=== PATIENT | female | born 1995 | race African-American/Black ===

== ENCOUNTER 2020-01-11 13:48 | Emergency (ER) | payer MEDICAID, OTHER ==
[~2020-01-11] VITALS: Ht 162.6 cm; Wt 77.3 kg
[~2020-01-11 13:48] MED LIST: DEXM20CP PO
[2020-01-11 13:52] VITALS: BP 116/78
[2020-01-11] MEDS ORDERED: ZICAM PO (13:57)
[2020-01-11] MEDS ORDERED: ACET-784 PO (13:57)
[2020-01-11] MEDS ORDERED: ONDANSETRON HCL 4 MG TABLET PO ONE (16:00)
[2020-01-11] MEDS ORDERED: ALBUTEROL SULFATE HFA 90 MCG/PUFF 8 GM INHALER IH ONE (16:00)
[2020-01-11] MEDS ORDERED: BENZONATATE 100 MG CAPSULE PO ONE (16:00)
[2020-01-11] MEDS ORDERED: IBUPROFEN 400 MG TABLET PO ONE (16:00)
[2020-01-11 16:17] LABS: INFLUENZA TYPE A NEGATIVE FOR TYPE A (NEGATIVE); INFLUENZA TYPE B NEGATIVE FOR TYPE B (NEGATIVE)
== END 2020-01-11 16:43 | disposition home or self-care (01) ==
LOC: EMS 13:49
DX: J06.9 Acute upper respiratory infection, unspecified (principal); Z20.828 Contact with and (suspected) exposure to other viral communicable diseases
CPT/HCPCS: 87635; 87804; 94640; 99284; Q0162; J3535

== ENCOUNTER 2022-02-12 18:04 | Emergency (ER) | payer MEDICAID ==
[~2022-02-12] VITALS: Ht 157.5 cm; Wt 81.8 kg
[~2022-02-12 18:04] MED LIST changes: +ACET-784 PO; -DEXM20CP PO; +ZICAM PO
[2022-02-12 19:03] VITALS: BP 115/75
[2022-02-12] MEDS ORDERED: IBUP-2070 PO (19:22)
== END 2022-02-12 19:36 | disposition home or self-care (01) ==
LOC: EMS 18:04
DX: R59.0 Localized enlarged lymph nodes (principal); F12.90 Cannabis use, unspecified, uncomplicated; Z98.890 Other specified postprocedural states
CPT/HCPCS: 99282; Z7502

== ENCOUNTER 2022-03-12 13:05 | Emergency (ER) | payer MEDICAID ==
[~2022-03-12] VITALS: Ht 157.5 cm; Wt 79.5 kg
[~2022-03-12 13:05] MED LIST changes: +IBUP-2070 PO
[2022-03-12 13:09] VITALS: BP 133/86
[2022-03-12] MEDS ORDERED: LIDOCAINE 1% 10 ML VIAL ID ONE (14:30)
== END 2022-03-12 15:41 | disposition home or self-care (01) ==
LOC: EMS 13:05
DX: S61.411A Laceration without foreign body of right hand, initial encounter (principal); F12.90 Cannabis use, unspecified, uncomplicated; F17.210 Nicotine dependence, cigarettes, uncomplicated; Z79.899 Other long term (current) drug therapy; W25.XXXA Contact with sharp glass, initial encounter; Y93.89 Activity, other specified; Y92.89 Other specified places as the place of occurrence of the external cause; Y99.8 Other external cause status
CPT/HCPCS: 12002; 99282; J3490

== ENCOUNTER 2022-03-27 10:40 | Emergency (ER) | payer MEDICAID ==
[~2022-03-27] VITALS: Ht 157.5 cm; Wt 79.5 kg
[2022-03-27 11:22] VITALS: BP 127/69
== END 2022-03-27 11:35 | disposition home or self-care (01) ==
LOC: EMS 10:42
DX: S61.411D Laceration without foreign body of right hand, subsequent encounter (principal); Z48.02 Encounter for removal of sutures; F12.90 Cannabis use, unspecified, uncomplicated; F17.210 Nicotine dependence, cigarettes, uncomplicated; W25.XXXD Contact with sharp glass, subsequent encounter
CPT/HCPCS: 99281; Z7502

== ENCOUNTER 2022-12-01 19:06 | Emergency (ER) | payer MEDICAID ==
[~2022-12-01] VITALS: Ht 157.5 cm; Wt 84.0 kg
[~2022-12-01 19:06] MED LIST changes: +IBUP-1492 PO; -IBUP-2070 PO
[2022-12-01 20:00] LABS: EOSINOPHILS % (AUTO) 2.1 % (1.0-6.0); HEMATOCRIT 39.6 % (36-46); HEMOGLOBIN 13.2 g/dL (12.0-16.0); LYMPHOCYTES # (AUTO) 3.2 K/uL (1.0-4.8); LYMPHOCYTES % (AUTO) 31.1 % (22.0-44.0); MEAN CORPUSCULAR HEMOGLOBIN 30.3 pg (26.0-34.0); MEAN CORPUSCULAR HGB CONC 33.3 G/dL (31.0-37.0); MEAN CORPUSCULAR VOLUME 91 fL (80-100); MONOCYTES # (AUTO) 0.6 K/uL (0.1-1.0); NEUTROPHILS # (AUTO) 6.2 K/uL (1.8-7.7); NEUTROPHILS % (AUTO) 59.8 % (40.0-70.0); PLATELET COUNT (AUTO) 239 K/uL (150-450); RED BLOOD CELL COUNT(AUTO) 4.36 MIL/uL (4.00-5.20); RED CELL DISTRIBUTION WIDTH 13.4 % (11.5-14.5)
[2022-12-01 20:27] LABS: APPEARANCE,URINE CLEAR (CLEAR); BILIRUBIN,URINE NEGATIVE (NEGATIVE); GLUCOSE, URINE (UA) NEGATIVE (NEGATIVE); KETONES,URINE NEGATIVE (NEGATIVE); LEUKOCYTE ESTERASE ,URINE SMALL (NEGATIVE); NITRATE,URINE NEGATIVE (NEGATIVE); OCCULT BLOOD,URINE NEGATIVE (NEGATIVE); PH,URINE 6.5 (5.0-8.0); PROTEIN,URINE NEGATIVE (NEGATIVE); UROBILINOGEN,URINE <=1.0 mg/dL (<=1.0)
[2022-12-01 20:35] LABS: BACTERIA,URINE Few /HPF (None Seen); RBC,URINE 0-2 /HPF (0-2); SQUAMOUS EPITHELIAL CELL,UR Moderate /LPF (None Seen)
[2022-12-01 22:51] VITALS: BP 125/71
== END 2022-12-01 23:05 | disposition home or self-care (01) ==
LOC: EMS 19:10
DX: O99.611 Diseases of the digestive system complicating pregnancy, first trimester (principal)
CPT/HCPCS: 76801; 76817; 81001; 84702; 85025; 99284